=== PATIENT | female | born 1945 | race Caucasian/White ===

== ENCOUNTER → 2018-03-21 14:18 | Outpatient (CLI) | payer MEDICARE, OTHER, SELFPAY ==
[2018-03-21 14:50] LABS: Alanine Aminotransferase 23 IU/L (9-52); Albumin 4.1 g/dL (3.5-5.0); Albumin Globulin Ratio 1.4 (1.0-2.8); Alkaline Phosphatase 74 U/L (38-126); Aspartate Aminotransferase 20 IU/L (14-36); BUN Creatinine Ratio 22.2 (6-22); Bilirubin Total 0.5 mg/dL (0.2-1.3); Blood Urea Nitrogen 20 mg/dL (7-17); Calcium 9.5 mg/dL (8.4-10.2); Carbon Dioxide 26 mmol/L (22-32); Chloride 105 mmol/L (98-107); Estimated Glomerular Filt Rate > 60.0 mL/min (>60); Glucose 139 mg/dL (80-110); HEMOLYSIS < 15 (0-50); Sodium 143 mmol/L (137-145); Total Protein 7.1 g/dL (6.3-8.2)
--- NOTE | 2018-03-21 16:48 | PC.NURSE ---
last CBC was 10/17 CMP and CA 27-29 only today. Provider visit on 03/23
[2018-03-23 15:36] LABS: Cancer Antigen 27.29 23 U/mL (< 38)
== END ==
PROVIDERS: Internal Medicine Hematology & Oncology; Family Provider Family Medicine; PCP Family Medicine; Visit Provider Nurse Practitioner Gerontology
DX: C50.919 Malignant neoplasm of unspecified site of unspecified female breast (principal)
CPT/HCPCS: 36415; 80053; 86300

== ENCOUNTER 2018-03-23 10:56 | Oncology outpatient (ONC) | payer MEDICARE, OTHER, SELFPAY ==
--- NOTE | 2017-11-17 15:58 | PC.NURSE ---
Addendum entered by Savanna Craven R.N. 11/25/17 09:37: Call placed to Estefanía to check in with her to see how she is feeling, now 1 week longer off of the letrozole. No answer so left a message requesting a call back. Original Note: Letrozole side effects: per Dr Li instructions pt is on a holiday from Letrozole.Called and left message that she is feeling better,bone pain is still constant but not as severe.Was told if ok she could restart but would prefer to wait another week.Discussed with Dr Mclain. he would like her to be feeling better than reported and wants her to to wait another week.Message left with the pt with instructions
--- NOTE | 2018-03-23 10:48 | ONC.APRN.PN ---
Assessment and Plan (1) Malignant neoplasm of female breast Onset Date: 05/12/16 Problem details: History of ERA/PRA-positive/HER2-kieran protein underexpression, infiltrating lobular carcinoma of the right breast, stage IIA. Her primary tumor was 2.2 cm in length. Status post a right mastectomy, 03/12/2015. Has done letrozole and tamoxifen but has severe bone pain with letrozole. Current visit: No Status: None 03/23/18 10:50 Antecedent history of ERA/PRA-positive/HER2-kieran protein underexpression, infiltrating lobular carcinoma of the right breast, stage IIA. Her primary tumor was 2.2 cm in length. Status post a right mastectomy, 03/12/2015. Oncotype diagnostic scoring was 18. Subsequently initiated on tamoxifen. Converted over to Femara in July of 2017 tolerating without significant adverse effects, managing arthralgias with Tylenol Arthritis. The patient is scheduled for her annual screening mammogram tomorrow March 24, 2018. CBC, CMP unremarkable. CA 27-29 is pending at time of dictation. No clinical signs or symptoms to suggest disease recurrence. Return to clinic in 6 months time for provider visit CBC, CMP. 03/23/18 11:57 - Time Spent with Patient 30 mins PN -Subjective Interval history: Antecedent history of ERA/PRA-positive/HER2-kieran protein underexpression, infiltrating lobular carcinoma of the right breast, stage IIA. Her primary tumor was 2.2 cm in length. Status post a right mastectomy, 03/12/2015. Oncotype diagnostic scoring was 18. Subsequently initiated on tamoxifen. Converted over to Femara in July of this year. Initially had some trouble with arthralgia, she did take drug holiday from Femara she reports today she is feeling ?much better?. She also struggles with fibromyalgia however she can well differentiate her myalgia pain versus Femara induced bony type pain. She takes Tylenol Arthritis during the day for the pain occasionally she will take a Vicodin at night. Otherwise doing well. No illnesses since her last visit. She is scheduled for her annual screening mammogram tomorrow March 24. No changes to report. No new lumps or bumps. No skin changes. Activity tolerance is stable. Appetite is stable, weight is stable. No cough. No headaches. Past Medical History The patient's past medical history is significant for: 2. Persistent tachycardia. Workup is described in my note of 12/18/2014. Dr. Rajan has continued the workup and has reported to the patient that after stopping Savella, which was taken for fibromyalgia, her tachycardia has improved and the urinary catecholamines have become normal. I do not have the final report, however. 3. Hysterectomy with unilateral oophorectomy 30 years ago, followed by 1 year of Premarin. 4. Pulmonary hypertension, according to the patient. 5. Fibromyalgia. 6. Borderline diabetes. 7. Systemic hypertension. she went to an legal director in [place] to assess some abnormality in labs (urine, blood) Breast Resection Staging BC Primary Tumor T2- Tumor >20mm but <50mm BC Regional Nodes N0-no regional metastasis BC Metastasis M0-No evidence metastasis Breast Resection Staging BC Primary Tumor T2- Tumor >20mm but <50mm BC Regional Nodes N0-no regional metastasis BC Metastasis M0-No evidence metastasis Results - Imaging Additional studies: Procedures Excision of axillary lymph node (02/19/14) Insertion of intraocular lens prosthesis at time of cataract extraction, one-stage (07/03/13) Local excision of lesion of breast (03/12/14) Phacoemulsification and aspiration of cataract (07/03/13) Resection of quadrant of breast (02/19/14) Home Medications and Allergies Home Medications Medication Instructions Recorded Confirmed Type cyclobenzaprine 10 mg PO PRN PRN #0 03/02/16 01/31/18 History letrozole [Femara] 2.5 mg PO QDAY #30 tab 08/10/17 01/31/18 Rx [TYLENOL ARTHRITIS] PRN #0 10/21/17 01/31/18 History celecoxib [Celebrex] 100 mg PO AMCC #30 cap 10/21/17 01/31/18 Rx biotin 10,000 mcg capsule mcg PO cap 01/31/18 01/31/18 History carvedilol 6.25 mg tablet 6.25 mg PO BID 01/31/18 01/31/18 History cholecalciferol (vitamin D3) 5,000 5,000 unit PO DAILY 01/31/18 01/31/18 History unit capsule hydrocodone 5 mg-acetaminophen 300 1 tab PO Q4HP PRN #20 tab 01/31/18 Rx mg tablet loperamide 2 mg capsule 2 mg PO Q2-4H PRN 01/31/18 01/31/18 History losartan-hydrochlorothiazide 1 tab PO DAILY 03/23/18 03/23/18 History ondansetron [Zofran ODT] 4 mg PO Q8-12H PRN #30 tab 03/23/18 Rx triamterene-hydrochlorothiazid 1 tab PO DAILY 03/23/18 03/23/18 History Allergies Allergy/AdvReac Type Severity Reaction Status Date / Time cortisone Allergy Unknown Unverified 01/31/18 14:56 dexamethasone Allergy Unknown Unverified 01/31/18 14:56 tape adhesive Allergy Unknown blistering Uncoded 01/31/18 14:56 Exam - Constitutional positive no acute distress - Routine Neck Exam Present: supple. Absent: lymphadenopathy - Routine Chest/Breast/Axilla Exam Axillae: Absent: lymphadenopathy, mass, tenderness - Routine Respiratory Exam Present: Clear to auscultation bilaterally. Absent: rales, rhonchi, wheezes - Routine Cardiovascular Exam Present: RRR, S1, S2. Absent: murmur, gallop, rubs, JVD - Routine Abdominal Exam Present: soft, normoactive bowel sounds. Absent: tenderness, organomegaly, mass - Routine Extremities Exam Absent: edema, calf tenderness - Routine Skin Exam Present: intact, normal turgor. Absent: petechiae, rash - Routine Neurological Exam Present: alert, oriented X3 - Routine Psychiatric Exam Present: normal affect
--- NOTE | 2018-03-23 10:51 | P.PNONC_ITS ---
Assessment and Plan (1) Malignant neoplasm of female breast Onset Date: 05/12/16 Problem details: History of ERA/PRA-positive/HER2-kieran protein underexpression, infiltrating lobular carcinoma of the right breast, stage IIA. Her primary tumor was 2.2 cm in length. Status post a right mastectomy, 2014. Has done letrozole and tamoxifen but has severe bone pain with letrozole. Current visit: No Status: None 03/23/18 10:50 Antecedent history of ERA/PRA-positive/HER2-kieran protein underexpression, infiltrating lobular carcinoma of the right breast, stage IIA. Her primary tumor was 2.2 cm in length. Status post a right mastectomy, 03/12/2015. Oncotype diagnostic scoring was 18. Subsequently initiated on tamoxifen. Converted over to Femara in July of 2017 tolerating without significant adverse effects, managing arthralgias with Tylenol Arthritis. The patient is scheduled for her annual screening mammogram tomorrow March. CBC, CMP unremarkable. CA 27-29 is pending at time of dictation. No clinical signs or symptoms to suggest disease recurrence. Return to clinic in 6 months time for provider visit CBC, CMP. 03/23/18 11:57 - Time Spent with Patient 30 mins PN -Subjective Interval history: Antecedent history of ERA/PRA-positive/HER2-kieran protein underexpression, infiltrating lobular carcinoma of the right breast, stage IIA. Her primary tumor was 2.2 cm in length. Status post a right mastectomy, 03/12/2015. Oncotype diagnostic scoring was 18. Subsequently initiated on tamoxifen. Converted over to Femara in July of this year. Initially had some trouble with arthralgia, she did take drug holiday from Femara she reports today she is feeling ?much better?. She also struggles with fibromyalgia however she can well differentiate her myalgia pain versus Femara induced bony type pain. She takes Tylenol Arthritis during the day for the pain occasionally she will take a Vicodin at night. Otherwise doing well. No illnesses since her last visit. She is scheduled for her annual screening mammogram tomorrow March 24. No changes to report. No new lumps or bumps. No skin changes. Activity tolerance is stable. Appetite is stable, weight is stable. No cough. No headaches. Past Medical History The patient's past medical history is significant for: 2. Persistent tachycardia. Workup is described in my note of 12/18/2014. Dr. Rajan has continued the workup and has reported to the patient that after stopping Savella, which was taken for fibromyalgia, her tachycardia has improved and the urinary catecholamines have become normal. I do not have the final report, however. 3. Hysterectomy with unilateral oophorectomy 30 years ago, followed by 1 year of Premarin. 4. Pulmonary hypertension, according to the patient. 5. Fibromyalgia. 6. Borderline diabetes. 7. Systemic hypertension. she went to an soft drink powder mixer in [place] to assess some abnormality in labs ( urine, blood) Breast Resection Staging BC Primary Tumor T2- Tumor >20mm but <50mm BC Regional Nodes N0-no regional metastasis BC Metastasis M0-No evidence metastasis Breast Resection Staging BC Primary Tumor T2- Tumor >20mm but <50mm BC Regional Nodes N0-no regional metastasis BC Metastasis M0-No evidence metastasis Results - Imaging Additional studies: Procedures Excision of axillary lymph node (02/19/14) Insertion of intraocular lens prosthesis at time of cataract extraction, one- stage (07/03/13) Local excision of lesion of breast (03/12/14) Phacoemulsification and aspiration of cataract (07/03/13) Resection of quadrant of breast (02/19/14) Home Medications and Allergies Home Medications Medication Instructions Recorded Confirmed Type cyclobenzaprine 10 mg PO PRN PRN #0 03/02/16 01/31/18 History letrozole [Femara] 2.5 mg PO QDAY #30 tab 08/10/17 01/31/18 Rx [TYLENOL ARTHRITIS] PRN #0 10/21/17 01/31/18 History celecoxib [Celebrex] 100 mg PO AMCC #30 cap 10/21/17 01/31/18 Rx biotin 10,000 mcg capsule mcg PO cap 01/31/18 01/31/18 History carvedilol 6.25 mg tablet 6.25 mg PO BID 01/31/18 01/31/18 History cholecalciferol (vitamin D3) 5,000 5,000 unit PO DAILY 01/31/18 01/31/18 History unit capsule hydrocodone 5 mg-acetaminophen 300 1 tab PO Q4HP PRN #20 tab 01/31/18 Rx mg tablet loperamide 2 mg capsule 2 mg PO Q2-4H PRN 01/31/18 01/31/18 History losartan-hydrochlorothiazide 1 tab PO DAILY 03/23/18 03/23/18 History ondansetron [Zofran ODT] 4 mg PO Q8-12H PRN #30 tab 03/23/18 Rx triamterene-hydrochlorothiazid 1 tab PO DAILY 03/23/18 03/23/18 History Allergies Allergy/AdvReac Type Severity Reaction Status Date / Time cortisone Allergy Unknown Unverified 01/31/18 14:56 dexamethasone Allergy Unknown Unverified 01/31/18 14:56 tape adhesive Allergy Unknown blistering Uncoded 01/31/18 14:56 Exam - Constitutional positive no acute distress - Routine Neck Exam Present: supple. Absent: lymphadenopathy - Routine Chest/Breast/Axilla Exam Axillae: Absent: lymphadenopathy, mass, tenderness - Routine Respiratory Exam Present: Clear to auscultation bilaterally. Absent: rales, rhonchi, wheezes - Routine Cardiovascular Exam Present: RRR, S1, S2. Absent: murmur, gallop, rubs, JVD - Routine Abdominal Exam Present: soft, normoactive bowel sounds. Absent: tenderness, organomegaly, mass - Routine Extremities Exam Absent: edema, calf tenderness - Routine Skin Exam Present: intact, normal turgor. Absent: petechiae, rash - Routine Neurological Exam Present: alert, oriented X3 - Routine Psychiatric Exam Present: normal affect
[2018-03-23 11:24] VITALS: BP 130/77; PULSE 74; RESP 18; TEMP 36.3; O2SAT 98
--- NOTE | 2018-03-27 08:17 | ONC.SCHED ---
Pre-Auth for Ondansetron- paperwork faxed to [facility] on 03/24/18 @10:45 for pre-authing.
--- NOTE | 2018-06-20 16:15 | PC.NURSE ---
Addendum entered by Idania Clarke R.N. 06/23/18 16:16: Spoke with pt and reviewed Lizzeth's recommendations. Ok for a medication holiday, but at some point she may need to be switched to exemestane letrozoles cousin drug. She feels it may significantly decrease her bone pain. Pt will do some research on this medication and get back to us. Original Note: Addendum entered by Idania Clarke R.N. 06/23/18 12:00: Received feedback from Lizzeth regarding below request. Left her a msg to contact us for Lizzeth's thoughts either today (06/23) or Tuesday (06/26) Original Note: Pt states that she has previously gone on a 2 week letrozole holiday due to increasing pain before. She had started medication in Jul 2017 and went on a 2 week break in December, then went back on med and has been taking it since December but she feels the pain has been increasing and has become quite uncomfortable. She is requesting to take another 2 week letrozole holiday. Note in Lizzeth's box to ask if that's ok?
--- NOTE | 2018-06-30 13:48 | PC.NURSE ---
Spoke with pt today and she has decided not to take a medication holiday. The last time we spoke I recommended she try CBG oil on her hands and feet. She said this has been a miracle in relieving her pain, tingling and burning she has been experiencing. So she will hold off making any changes until she sees you sometime in August. Because she is continuing treatment, she required a refill which I called in for her.
== END 2018-04-04 14:48 ==
LOC: ONC 10:58
PROVIDERS: Family Provider Family Medicine; PCP Family Medicine; Visit Provider Internal Medicine Hematology & Oncology
DX: C50.911 Malignant neoplasm of unspecified site of right female breast (principal); Z17.0 Estrogen receptor positive status [ER+]; Z79.811 Long term (current) use of aromatase inhibitors
CPT/HCPCS: 99214

== ENCOUNTER → 2018-03-27 10:54 | Outpatient (CLI) | payer MEDICARE, OTHER, SELFPAY ==
--- NOTE | 2018-03-27 | DI.MG.S_ITS ---
UNILATERAL LEFT DIGITAL SCREENING MAMMOGRAM 3D/2D WITH CAD POST MASTECTOMY: 03/27/2018 CLINICAL: Routine screening. Personal history of breast cancer. Comparison is made to exams dated: 02/17/2017 mammogram, 01/02/2016 mammogram, and 12/02/2014 mammogram - [facility]. The tissue of the left breast is heterogeneously dense. This may lower the sensitivity of mammography. Current study was also evaluated with a Computer Aided Detection (CAD) system. No significant masses, calcifications, or other findings are seen in the breast. There has been no significant interval change. IMPRESSION: NEGATIVE There is no mammographic evidence of malignancy. A 1 year screening mammogram is recommended. This exam was interpreted at Station ID: [id number]. NOTE: For mammograms, a report in lay terms will be sent to the patient. Approximately 15% of breast malignancies will not be visualized mammographically. In the management of a palpable breast mass, a negative mammogram must not discourage biopsy of a clinically suspicious lesion. Electronically Signed By: Mena mcintyre/piero:03/27/2018 11:44:38 copy to: Holli Bedoya letter sent: Normal Exam ACR BI-RADS Category 1: Negative 3341F
== END ==
PROVIDERS: Family Provider Family Medicine; PCP Family Medicine; Visit Provider Nurse Practitioner Gerontology
DX: Z12.31 Encounter for screening mammogram for malignant neoplasm of breast (principal); Z85.3 Personal history of malignant neoplasm of breast
CPT/HCPCS: 77063; 77065

== ENCOUNTER → 2018-09-20 15:58 | Outpatient (CLI) | payer MEDICARE, OTHER, SELFPAY | PROVIDERS: Family Provider Family Medicine; PCP Family Medicine; Visit Provider Internal Medicine Hematology & Oncology | DX: C50.411 Malignant neoplasm of upper-outer quadrant of right female breast (principal); Z17.0 Estrogen receptor positive status [ER+] | CPT/HCPCS: 36415; 86300 ==

== ENCOUNTER → 2018-09-28 10:26 | Outpatient (CLI) | payer MEDICARE, OTHER, SELFPAY ==
--- NOTE | 2018-09-28 10:28 | DI.US.S_ITS ---
COMPLETE ULTRASOUND OF RIGHT BREAST: 09/28/2018 CLINICAL: RIGHT breast lumps s/p mastectomy. Comparison exam from 12/19/2013. Ultrasound of the right chest in areas of palpable abnormality was performed. Patient is status post mastectomy. There is 1.1 cm x 0.6 cm x 0.9 cm oval mass with an indistinct margin in the right breast at 9 o'clock posterior depth. This oval mass is hyperechoic and heterogeneously echogenic. This correlates to a growing, palpable nodule. Color flow imaging demonstrates that there is increased vascularity. There also are two enalrged lymph nodes with benign fatty noel and thin cortexes in the 10 o'clock position measuring 1.3 cm x 0.6 cm x 0.8 cm and 2 cm x 0.9 cm x 1.2 cm. A 3 mm calcification corresponds to a 6 oclock palpable nodule, and there are no sonographic correlates to the 7 o'clock palpable abnormality. IMPRESSION: SUSPICIOUS OF MALIGNANCY The 1.1 cm x 0.6 cm x 0.9 cm oval mass in the right breast at 9 o'clock posterior depth has a differential diagnosis of an enlarged lymph node, carcinoma, or fat necrosis and is at an intermediate suspicion for malignancy. An ultrasound guided biopsy is recommended given patient history of neoplasm in this location. Other findings including axillary tail lymph nodes appear benign. Findings and recommendations discussed with patient by Dr. Hollingsworth. This exam was interpreted at Station ID: [id number]. Electronically Signed By: Mindy gupta/:09/28/2018 17:56:41 copy to: Holli Bedoya letter sent: Biopsy Required Ultrasound BI-RADS: 4b Suspicious abnormality - intermediate suspicion of malignancy
== END ==
PROVIDERS: Family Provider Family Medicine; PCP Family Medicine; Visit Provider Internal Medicine Hematology & Oncology
DX: C50.811 Malignant neoplasm of overlapping sites of right female breast (principal)
CPT/HCPCS: 76642

== ENCOUNTER → 2018-10-20 07:36 | Outpatient (CLI) | payer MEDICARE, OTHER, SELFPAY ==
--- NOTE | 2018-10-20 | PATH_ITS ---
[facility] Accession Number: [id number] . 01 Material submitted: . RIGHT BREAST MASS 9:00 LATERAL SCAR . 01 Diagnosis: Right Breast Mass, 9 o'clock, Lateral Kathy, Biopsy: Portions of fatty and reactive lymph node with focal epithelioid histiocytes and associated fibroadipose tissue. Breast ducts and lobules are not present. Negative for malignancy. V/10/24/2018 . 01 Electronically signed: . Laura Campbell MD, Pathologist NPI- [id number] . 01 Gross description: . Received in one formalin-filled container, labeled with the patient's name and designated right breast mass 9 o'clock lateral scar, are multiple fragments of tissue and blood which aggregate to 1.5 x 1.0 x 0.3 cm. The specimen is filtered, wrapped, and entirely submitted in one cassette. Collection date: 10/20/2018. Collection time per container: 8:55 a.m. Total fixation time: 24 hours, up to 48. ([id number]) /FRR . 01 Microscopic: . An epithelial marker (BENOIT immunostain) is performed on block A1 in order to assess for the presence of carcinoma in the lymph node, given the patient's known personal history of invasive lobular carcinoma. The sections are negative for BENOIT, with an appropriately staining external control. The immunohistochemical findings support the diagnosis. . * This test was developed and its performance characteristics determined by [employer]. It has not been cleared or approved by the U.S. Food and Drug Administration. The FDA has determined that such clearance or approval is not necessary. This test is used for clinical purposes. It should not be regarded as investigational or for research. . 01 Pathologist provided ICD-10: Z85.3 . 01 CPT . 213603, Z44402 Performed at: [address] [facility] [address], [place], [place] [id number] MD Pascual Syed MD Phone: [phone]
--- NOTE | 2018-10-20 07:39 | DI.US.S_ITS ---
PROCEDURE: US BX BREAST PERC W VAC DEVICE COMPARISON: None. INDICATIONS: RIGHT BREAST MASS FINDINGS: IMPRESSION: Dictated by: Alfonso Mckenzie M.D. on 10/20/2018 at 16:54 Approved by: Alfonso Mckenzie M.D. on 10/20/2018 at 16:54
== END ==
PROVIDERS: Family Provider Family Medicine; PCP Family Medicine; Visit Provider Internal Medicine Hematology & Oncology
DX: N63.10 Unspecified lump in the right breast, unspecified quadrant (principal); C50.919 Malignant neoplasm of unspecified site of unspecified female breast; C50.912 Malignant neoplasm of unspecified site of left female breast
CPT/HCPCS: 19083

== ENCOUNTER → 2018-12-12 10:09 | Outpatient (CLI) | payer MEDICARE, OTHER, SELFPAY ==
--- NOTE | 2018-12-12 10:38 | DI.RAD.S_ITS ---
PROCEDURE: XR HAND LT MIN 3V INDICATIONS: bilateral hand pain after taking cancer medications TECHNIQUE: 3 views of the hand(s) acquired. COMPARISON: None. FINDINGS: Bones: No fractures or dislocations. Carpal bones are normally aligned. No suspicious bony lesions. Mild degenerative interphalangeal osteoarthritic change is present distally. No sign of erosive arthritis. Sign report Soft tissues: No suspicious soft tissue calcifications. IMPRESSION: No trauma found. Chronic appearing mild degenerative osteoarthritic change is present. Dictated by: Fantasma Chowdhury M.D. on 12/12/2018 at 11:23 Approved by: Fantasma Chowdhury M.D. on 12/12/2018 at 11:25
--- NOTE | 2018-12-12 10:38 | DI.RAD.S_ITS ---
PROCEDURE: XR HAND RT MIN 3V INDICATIONS: bilateral hand pain after taking cancer medications TECHNIQUE: 3 views of the hand(s) acquired. COMPARISON: [facility], CR, XR HAND LT MIN 3V, 12/12/2018, 10:39. FINDINGS: Bones: No fractures or dislocations. Carpal bones are normally aligned. No suspicious bony lesions. Mild distal interphalangeal degenerative osteoarthritis. No trauma or erosive arthritis found. Soft tissues: No suspicious soft tissue calcifications. IMPRESSION: Mild osteoarthritis. Dictated by: Fantasma Chowdhury M.D. on 12/12/2018 at 11:25 Approved by: Fantasma Chowdhury M.D. on 12/12/2018 at 11:26
[2018-12-12 11:23] LABS: Alanine Aminotransferase 22 IU/L (9-52); Albumin 4.2 g/dL (3.5-5.0); Albumin Globulin Ratio 1.4 (1.0-2.8); Alkaline Phosphatase 83 U/L (38-126); Aspartate Aminotransferase 20 IU/L (14-36); BUN Creatinine Ratio 22.2 (6-22); Bilirubin Total 0.5 mg/dL (0.2-1.3); Blood Urea Nitrogen 20 mg/dL (7-17); Calcium 9.8 mg/dL (8.4-10.2); Carbon Dioxide 30 mmol/L (22-32); Chloride 105 mmol/L (98-107); Estimated Glomerular Filt Rate > 60.0 mL/min (>60); Glucose 120 mg/dL (80-110); HEMOLYSIS < 15 (0-50); Potassium 4.5 mmol/L (3.4-5.1); Sodium 140 mmol/L (137-145); Total Protein 7.2 g/dL (6.3-8.2)
[2018-12-12 11:29] LABS: Rheumatoid Factor < 8.6 IU/mL (<12.0)
[2018-12-12 11:53] LABS: Carcinoembryonic Antigen 1.9 ng/mL (0.1-3.0)
[2018-12-13 13:13] LABS: CCP Antibody (IgG) < 16 Units (< 20)
[2018-12-14 17:08] LABS: CA 15-3 18 U/mL (< 32)
[2018-12-14 17:09] LABS: Cancer Antigen 27.29 27 U/mL (< 38)
== END ==
PROVIDERS: Internal Medicine Hematology & Oncology; PCP Family Medicine; Visit Provider Family Medicine
DX: M79.641 Pain in right hand (principal); M79.642 Pain in left hand; C50.919 Malignant neoplasm of unspecified site of unspecified female breast
CPT/HCPCS: 36415; 73130; 80053; 82378; 86200; 86300; 86430

== ENCOUNTER → 2020-02-26 09:04 | Outpatient (CLI) | payer MEDICARE, OTHER, SELFPAY ==
--- NOTE | 2020-02-26 09:07 | DI.US.S_ITS ---
PROCEDURE: US RENAL COMPLETE INDICATIONS: FLANK PAIN TECHNIQUE: Real-time scanning was performed of the kidneys and bladder, with image documentation. COMPARISON: None. FINDINGS: Kidneys: Kidneys are normal in size. Right kidney measures 10.6 cm long; left kidney measures 10.0 cm long. Right renal cortical thickness is 1.6 cm; left renal cortical thickness is 1.3 cm. Renal cortical echotexture is normal. Mild right-sided hydronephrosis. No left-sided hydronephrosis. No nephrolithiasis. No suspicious solid mass lesions. Bladder: Pre-void bladder volume is 140 mL. Post-void residual is 0 mL. Pre-void images demonstrate no intraluminal masses or stones. On pre-void images, neither the right nor the left ureteral jets are noted with color Doppler interrogation. (Of note, ureteral jets may not be detectable in up to 25% of cases due to insufficient differences in specific gravity between ureteral and bladder urine). Miscellaneous: No free pelvic fluid. IMPRESSION: Mild right-sided hydronephrosis. Cause of hydronephrosis is not identified by ultrasound imaging. Consider CT KUB for further evaluation if clinically indicated. Dictated by: Ludy Cervantes MD, PhD on 02/26/2020 at 17:18 Approved by: Ludy Cervantes MD, PhD on 02/26/2020 at 17:20
[2020-02-26 12:04] LABS: Add Manual Diff / Slide Review NO; Basophils Absolute Auto 0 /uL (0-100); Basophils Percent Auto 0.3 % (0-2); Eosinophils Absolute Auto 200 /uL (0-450); Eosinophils Percent Auto 1.8 % (2-4); Hematocrit 38.2 % (36-46); Hemoglobin 13.3 g/dL (12.0-16.0); Lymphocytes Absolute Auto 3400 /uL (1100-4500); Lymphocytes Percent Auto 37.6 % (25-40); Mean Corpuscular HGB Conc 34.8 % (30-36); Mean Corpuscular Volume 83.2 fL (80-100); Monocytes Absolute Auto 700 /uL (0-900); Monocytes Percent Auto 7.5 % (3-14); Neutrophils Absolute Auto 4800 /uL (1500-7000); Neutrophils Percent Auto 52.8 % (50-75); Platelet Count 270 X10^3/uL (150-400); Red Blood Cell Count 4.59 X10^6/uL (4.0-5.2); Red Cell Distribution Width 13.5 % (11.6-14.8); White Blood Cell Count 9.1 X10^3/uL (4.5-11.0)
[2020-02-26 12:37] LABS: Alanine Aminotransferase 15 IU/L (<35); Albumin 4.1 g/dL (3.5-5.0); Albumin Globulin Ratio 1.4 (1.0-2.8); Alkaline Phosphatase 77 U/L (38-126); Aspartate Aminotransferase 21 IU/L (14-36); BUN Creatinine Ratio 22.2 (6-22); Bilirubin Total 0.6 mg/dL (0.2-1.3); Blood Urea Nitrogen 20 mg/dL (7-17); Calcium 9.8 mg/dL (8.4-10.2); Carbon Dioxide 30 mmol/L (22-32); Chloride 100 mmol/L (98-107); Estimated Glomerular Filt Rate > 60.0 mL/min (>60); Glucose 103 mg/dL (80-110); HEMOLYSIS < 15 (0-50); Potassium 4.6 mmol/L (3.4-5.1); Sodium 138 mmol/L (137-145); Total Protein 7.1 g/dL (6.3-8.2)
== END ==
PROVIDERS: Family Provider Family Medicine; PCP Family Medicine; Referring Provider Family Medicine; Visit Provider Family Medicine
DX: N13.30 Unspecified hydronephrosis (principal); N23 Unspecified renal colic; C50.919 Malignant neoplasm of unspecified site of unspecified female breast; I10 Essential (primary) hypertension; R73.03 Prediabetes
CPT/HCPCS: 36415; 76770; 80053; 83036; 85025

== ENCOUNTER → 2020-02-27 11:21 | Outpatient (CLI) | payer MEDICARE, OTHER, SELFPAY ==
[2020-02-28 08:14] LABS: Fecal Immunochemical Test Negative (Negative)
== END ==
PROVIDERS: Family Provider Family Medicine; PCP Family Medicine; Referring Provider Family Medicine; Visit Provider Family Medicine
DX: Z12.11 Encounter for screening for malignant neoplasm of colon (principal)
CPT/HCPCS: 82274

== ENCOUNTER → 2020-02-28 14:33 | Outpatient (CLI) | payer MEDICARE, OTHER, SELFPAY ==
--- NOTE | 2020-02-28 14:37 | DI.US.S_ITS ---
LIMITED ULTRASOUND OF RIGHT BREAST: 02/28/2020 CLINICAL: Right breast S/P mastectomy palpable areas of pain. Comparison is made to exams dated: 10/20/2018 ultrasound biopsy, 09/28/2018 ultrasound, 04/28/2015 ultrasound, and 02/19/2014 [facility]. Real-time ultrasound of the right breast 6-9 o'clock region was performed. Burden scale images of the real-time examination were reviewed. Post right mastectomy. No significant abnormalities were seen sonographically in the right breast. Scaring at 6:00 o'clock and biopsy clip at 9:00 o'clock are stable in appearance. No finding at 7:00 o'clock in the region of pain. IMPRESSION: BENIGN There is no sonographic evidence of malignancy. Exam findings were conveyed to the patient. Patient is advised to monitor for significant change. Patient is also due for left breast screening mammogram. This exam was interpreted at Station ID: [id number]. Electronically Signed By: Jacinto Nagel M.D. slc/:02/29/2020 14:33:28 copy to: Holli Bedoya letter sent: Additional Imaging Needed Ultrasound BI-RADS: 2 Benign
== END ==
PROVIDERS: Family Provider Family Medicine; PCP Family Medicine; Referring Provider Internal Medicine Hematology & Oncology; Visit Provider Internal Medicine Hematology & Oncology
DX: Z08 Encounter for follow-up examination after completed treatment for malignant neoplasm (principal); Z85.3 Personal history of malignant neoplasm of breast; N63.15 Unspecified lump in the right breast, overlapping quadrants; N64.4 Mastodynia; L90.5 Scar conditions and fibrosis of skin; Z90.11 Acquired absence of right breast and nipple
CPT/HCPCS: 76642; 99214

== ENCOUNTER → 2020-04-01 15:30 | Outpatient (CLI) | payer MEDICARE, OTHER, SELFPAY ==
[2020-04-01 16:39] LABS: Appearance Urine UA CLOUDY; Bilirubin Urine UA NEGATIVE (NEGATIVE); Color Urine UA YELLOW; Glucose Urine UA NEGATIVE (Negative); Ketones Urine UA NEGATIVE (NEGATIVE); Leukocyte Esterase Urine UA 2+ (NEGATIVE); Nitrite Urine UA POSITIVE (Negative); Occult Blood Urine UA 1+ (Negative); Protein Urine UA 1+ (Negative); Urobilinogen Urine UA 0.2 E.U./dL (0.2)
[2020-04-01 16:58] LABS: Amorphous Sediment Urine 1+; Bacteria Urine Many (>30); Culture Indicated Urine Specimen Cultured; Mucus Urine 1+ (Negative); RBC Urine 1-5/HPF (0-5/HPF); Squamous Epithelial Cell Urine 1-5 /HPF (0-5/HPF); WBC Urine >100/HPF (0-5/HPF)
== END ==
PROVIDERS: Family Provider Family Medicine; PCP Family Medicine; Referring Provider Family Medicine; Visit Provider Family Medicine
DX: R31.9 Hematuria, unspecified (principal); R50.9 Fever, unspecified
CPT/HCPCS: 81001; 87077; 87086; 87186

== ENCOUNTER → 2020-04-17 09:23 | Outpatient (CLI) | payer MEDICARE, OTHER, SELFPAY ==
[2020-04-17 09:31] LABS: RBC Urine None Seen (0-5/HPF)
[2020-04-17 09:41] LABS: Appearance Urine UA CLEAR; Bilirubin Urine UA NEGATIVE (NEGATIVE); Color Urine UA YELLOW; Glucose Urine UA NEGATIVE (Negative); Ketones Urine UA NEGATIVE (NEGATIVE); Leukocyte Esterase Urine UA TRACE (NEGATIVE); Nitrite Urine UA NEGATIVE (Negative); Occult Blood Urine UA NEGATIVE (Negative); Protein Urine UA NEGATIVE (Negative); Specific Gravity Urine UA 1.015 (1.000-1.035); Urobilinogen Urine UA 0.2 E.U./dL (0.2)
[2020-04-17 10:06] LABS: WBC Urine 10-30/HPF (0-5/HPF)
[2020-04-17 10:07] LABS: Amorphous Sediment Urine 1+; Bacteria Urine Moderate (10-30); Culture Indicated Urine Specimen Cultured; Squamous Epithelial Cell Urine 1-5 /HPF (0-5/HPF)
== END ==
PROVIDERS: Family Provider Family Medicine; PCP Family Medicine; Referring Provider Family Medicine; Visit Provider Family Medicine
DX: R30.0 Dysuria (principal); Z87.440 Personal history of urinary (tract) infections
CPT/HCPCS: 81001; 87077; 87086; 87186

== ENCOUNTER → 2020-05-07 15:39 | Outpatient (CLI) | payer MEDICARE, OTHER, SELFPAY ==
--- NOTE | 2020-05-07 15:43 | DI.MG.S_ITS ---
UNILATERAL LEFT DIGITAL SCREENING MAMMOGRAM 3D/2D WITH CAD POST MASTECTOMY: 05/07/2020 CLINICAL: Routine screening. Breast cancer. Comparison is made to exams dated: 03/27/2018 mammogram, 02/17/2017 mammogram, and 01/02/2016 mammogram - [facility]. The tissue of left breast is heterogeneously dense. This may lower the sensitivity of mammography. Current study was also evaluated with a Computer Aided Detection (CAD) system. No significant masses, calcifications, or other findings are seen in the breast. There has been no significant interval change. IMPRESSION: NEGATIVE There is no mammographic evidence of malignancy. A 1 year screening mammogram is recommended. This exam was interpreted at Station ID: [id number]. NOTE: For mammograms, a report in lay terms will be sent to the patient. Approximately 15% of breast malignancies will not be visualized mammographically. In the management of a palpable breast mass, a negative mammogram must not discourage biopsy of a clinically suspicious lesion. Electronically Signed By: Pascual benavides/piero:05/07/2020 16:25:05 copy to: Holli Bedoya letter sent: Normal Exam ACR BI-RADS Category 1: Negative [id number]
== END ==
PROVIDERS: Family Provider Family Medicine; PCP Family Medicine; Referring Provider Internal Medicine Hematology & Oncology; Visit Provider Internal Medicine Hematology & Oncology
DX: Z12.31 Encounter for screening mammogram for malignant neoplasm of breast (principal); Z85.3 Personal history of malignant neoplasm of breast
CPT/HCPCS: 77063; 77067

== ENCOUNTER → 2021-03-20 12:06 | Outpatient (CLI) | payer MEDICARE, OTHER, SELFPAY ==
--- NOTE | 2021-03-20 12:07 | DI.MRI.S_ITS ---
PROCEDURE: MR HEAD/BRAIN WO/W CON INDICATIONS: headache, and right breast cancer TECHNIQUE: Noncontrast axial T1 spin echo, axial T2 fast spin echo, sagittal and axial FLAIR, coronal T2 fast spin echo, axial gradient echo, axial diffusion and ADC through the brain. After the administration of contrast, axial and coronal T1 spin echo with fat saturation through the brain. COMPARISON: None. FINDINGS: Image quality: Diagnostic, with note made of motion artifact. CSF spaces: Basal cisterns are patent. No extra-axial fluid collections. Ventricles are normal in size and shape. Brain: No midline shift. No intracranial bleeds or masses. No abnormal intracranial enhancement. There is cerebral volume loss for age. There is periventricular white matter chronic small vessel ischemic change. The brainstem appears normal. Diffusion-weighted images demonstrate no acute ischemic insults. No chronic ischemic insults. Normal intravascular flow voids are present. Skull and face: Calvarial marrow is normal in signal. Orbits appear normal. Note is made of bilateral lens replacements. Sinuses: Sinuses and mastoids appear clear. IMPRESSION: No findings of intracranial masses or abnormal enhancement can be seen to suggest intracranial metastatic disease. No imaging explanation found for the patient's presenting history of headache. Dictated by: Aly Back M.D. on 03/20/2021 at 12:48 Approved by: Aly Back M.D. on 03/20/2021 at 12:49
== END ==
PROVIDERS: Family Provider Family Medicine; PCP Family Medicine; Referring Provider Internal Medicine Hematology & Oncology; Visit Provider Internal Medicine Hematology & Oncology
DX: R51.9 Headache, unspecified (principal); C50.911 Malignant neoplasm of unspecified site of right female breast
CPT/HCPCS: 70553